=== PATIENT | male | born 1945 | race Caucasian/White ===

== ENCOUNTER → 2016-09-07 | Outpatient (CLI) | payer MEDICARE ==
[~2016-09-07] MED LIST: AFRIN) (GENASAL15 ML NOSE; AMOX TR-K CLV1 EAC4 PO; ASPIRIN325 MG PO; ATORVASTATIN CA80 MG PO; CALCIUM500 MG PO; CARVEDILOL3.125 MG PO; CLARITIN10 MG PO; COLACE100 MG PO; DELTASONE10 MG PO; DIFLUCAN100 MG FT; DILANTIN100 MG PO; DULCOLAX10 MG R; FEOSOL325 MG PO; FISH OIL1000 MG PO; FLOMAX0.4 MG PO; FLUOXETINE HCL20 MG PO; GLUCOPHAGE850 MG PO; GLUCOSAMINE-CH1 EA35 PO; GLUCOSAMINE-CH1 EAC2 PO; IPRAT-ALBUT 0.5-3 ML INH; ISOSOURCE 1.5250 ML PO; LEVEMIR100 UNIT/1 SUB-Q; LOTRIMIN AF24 GM TOP; LOTRIMIN30 GM TOP; MILK OF MA400 MG/5 M PO; MIRALAX17 GM PO; NOVOLOG100 UNIT/M SUB-Q; PHENYTOIN SODI100 MG PO; PRILOSEC OTC20 MG PO; PRILOSEC20 MG PO; PRINIVIL (ZESTRI5 MG PO; PRINIVIL OR ZES10 MG PO; PROTONIX40 MG PO; PROZAC40 MG PO; SEROQUEL25 MG PO; SEROQUEL50 MG PO; THERAGRAN-M1 TAB PO; TYLENOL325 MG FT; ULTRAM50 MG FT; ULTRAM50 MG PO; VITAMIN D-32000 UNI1 PO; VITAMIN E400 UNI2 PO; XANAX0.25 MG FT; ZEBETA5 MG PO; ZOFRAN8 MG PO; [UNRECOGNIZED DRUG - CODE] PO
== END | disposition disaster alternative care site (69) ==
LOC: GRAD 11:03
DX: T85.9XXA Unspecified complication of internal prosthetic device, implant and graft, initial encounter (principal); R13.10 Dysphagia, unspecified; R93.3 Abnormal findings on diagnostic imaging of other parts of digestive tract
CPT/HCPCS: G8996; G8997; G8998

== ENCOUNTER 2016-10-22 15:15 | Inpatient (IN) | payer MEDICARE ==
[~2016-10-22] VITALS: Ht 180.3 cm; Wt 71.2 kg
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
--- NOTE | ~2016-10-22 | DS ---
[facility]'S NAME: [facility] AGE: 71 Y [address] ROOM: [address] [address] LOCATION: [facility] [place] ADMIT DATE: 10/22/2016 Discharge Summary DISCHARGE DATE: 11/04/2016 FAMILY PHYSICIAN: Daren Gao MD ATTENDING PHYSICIAN: Hammad Nelson FINAL DIAGNOSES: 1. Cervical spondylolysis with subluxation. 2. Anterior cervical diskectomy with decompression of neural elements C4-C5, structural allograft, morselized allograft fusion C4-C5, [place] Elite plate placement C4-C5. 3. Postop swallowing difficulty requiring NG tube placement and feeding. 4. Eventual PEG tube placement for inability to swallow after multiple failed swallowing studies. 5. Diabetes mellitus type 2, treated with insulin. 6. Hyponatremia, resolved. 7. History of intracranial hemorrhage in 2007, after cerebral infarction. 8. Residual left hemiplegia from 2007. 9. PAD. 10. Hypertension, essential. 11. Mixed hyperlipidemia. 12. Ischemic heart disease with history of systolic dysfunction. Atrial fibrillation. 13. Cognitive impairment probably early dementia. HOSPITAL COURSE: The patient was admitted to the hospital per Dr. Montague and had neck surgery and then after surgery had trouble swallowing. ENT was consulted because of his swallowing difficulty, see Dr. Mccray's note. Cardiology was consulted, see Dr. Corrigan's note, and renal service per Dr. Mondragon was consulted because of the patient's hyponatremia. Eventually, the patient was seen also by Dr. Cote for consideration for rehab. Please see their dictation notes on the chart. Multiple lab and x-ray done. The patient reached maximal hospital benefit and was stable enough to be dismissed from hospital on date shown on the med list shown. He will follow up and see me in the office in one week and follow up with specialist as needed. Prognosis is guarded. DAREN GAO MD AIRPORT SECURITY SCREENER/modl PAT[facility]'S [facility]: [facility] AGE: 71 Y [address] ROOM: [address] [address] LOCATION: [facility] [place] ADMIT DATE: 10/22/2016 Discharge Summary DISCHARGE DATE: 11/04/2016 FAMILY PHYSICIAN: Daren Gao MD ATTENDING PHYSICIAN: Hammad Nelson /[id number] d: 11/20/16 2225 t: 11/25/16 0744, DISCHARGE SUMMARY
--- NOTE | ~2016-10-22 | PUL ---
PATIENT'S NAME: ADOLPH AGUILAR [facility] AGE: 71 Y [address] ROOM: [place] [address] [place] [facility] [place] DATE: 10/22/2016 Pulmonary DISCHARGE DATE: FAMILY PHYSICIAN: DAREN URIBE MD ATTENDING PHYSICIAN: Hammad Nelson NAME OF PROCEDURE: Overnight Trend Oximetry DATE OF PROCEDURE: October 27 to October 28, 2016 REASON FOR EXAM: Nocturnal hypoxemia RESULTS: The patient underwent overnight trend oximetry with saturations ranging from 75% to 91%. Saturations were below 88% for greater than 5 minutes. Heart rate ranged from 96 to 117 beats per minute. MD MYLES OLIVO/ /[id number] dtt: 11/16/16 0824 , Rishi Archer dtd: 10/28/16 0903
--- NOTE | ~2016-10-22 | CON ---
PATIENT'S NAME: ADOLPH AGUILAR [facility] AGE: 71 Y [address] ROOM: [place] [id number] LOCATION: [facility] [place] ADMIT DATE: 10/22/2016 Consultation DISCHARGE DATE: 11/04/2016 FAMILY PHYSICIAN: Johnathan Gao MD ATTENDING PHYSICIAN: Hammad Nelson HISTORY OF PRESENT ILLNESS: The patient is a 71-year-old gentleman with a past medical history of recently diagnosed stage III lung cancer, metastatic, currently undergoing chemotherapy. He was in Hematology/Oncology Clinic today, where he presented because he was feeling nausea and not feeling well and upset stomach. His also stated that he had been sleeping most of the days and had been drowsy and had been losing his balance after standing up. He had difficulty breathing while he laid down this morning as well. On my encounter, the patient is feeling weak. He denied any chest pain, any shortness of breath, any abdominal pain, did endorse having burning on urination. He denied having any fever or chills. No headache noted. PAST MEDICAL HISTORY: CVAs many years ago; diabetes mellitus type 2; hypertension; and atrial fibrillation, not on any long-term anticoagulation. SOCIAL HISTORY: Former smoker. No ongoing toxic habits. FAMILY HISTORY: brother testicular cancer. MEDICATIONS: Please see MAR. PHYSICAL EXAMINATION: VITAL SIGNS: The patient was having blood pressure of 100/70, 82, afebrile, 20. GENERAL: Mild acute distress due to weakness. Alert and oriented x3. HEENT: Head: Atraumatic and normocephalic. Eyes: Nonicteric. No pallor. Oropharynx: Moist mucous membranes. CARDIOVASCULAR: S1 and S2. No murmurs, gallops, or rubs. LUNGS: Clear to auscultation bilaterally. ABDOMEN: Soft, nontender, and nondistended. Bowel sounds present. EXTREMITIES: No clubbing, cyanosis, or edema. LABORATORY DATA: Lab work showed white count of 21, hemoglobin of 11, hematocrit of 32, and platelets of 226. PATIENT'S NAME: ADOLPH AGUILAR [facility] AGE: 71 Y [address] ROOM: [place] [id number] LOCATION: [facility] [place] ADMIT DATE: 10/22/2016 Consultation DISCHARGE DATE: 11/04/2016 FAMILY PHYSICIAN: Johnathan Gao MD ATTENDING PHYSICIAN: Hammad Nelson ASSESSMENT: 1. Acute cystitis. 2. Stage III lung cancer, adenocarcinoma. 3. Hypertension. 4. Coronary artery disease. 5. Peripheral vascular disease. 6. Depression. 7. Gastroesophageal reflux disease. 8. Iron deficiency anemia. 9. Atrial fibrillation, not on any anticoagulation. PLAN: We are going to admit this patient. We are going to start antibiotics and intravenous fluid resuscitation. We will obtain basic labs including a BMP. We will get a CAT scan of the chest without contrast given his short of breath and history of lung cancer. Could be pneumonitis secondary to the radiation treatment. I will start the patient on heparin 5000 units subcu q.8 hours. After Cr is stablized, we will change it to Lovenox. Thank you for this consult. MD ARABELLA ANGELES/herson /[id number] d: 11/08/162020 t: 11/14/16 1316, CONSULTATION REPORT
--- NOTE | ~2016-10-22 | DS ---
PATIENT'S NAME: ADOLPH AGUILAR [facility] AGE: 71 Y [address] ROOM: [place] [address] LOCATION: [facility] [place] ADMIT DATE: 10/22/2016 Discharge Summary DISCHARGE DATE: 11/04/2016 FAMILY PHYSICIAN: Johnathan Gao MD ATTENDING PHYSICIAN: Hammad Nelson /DISCHARGE SUMMARY DATE OF : 11/04/2016. PRIMARY DIAGNOSES: 1. Tox-dsbml-lvns lung carcinoma, stage IV. 2. Acute on chronic hypoxic respiratory failure. 3. Sepsis. 4. Urinary tract infection with Pseudomonas and Enterococcus faecalis. 5. Acute on chronic diastolic congestive heart failure. 6. Paroxysmal atrial fibrillation. 7. Diabetes mellitus type 2. 8. History of cerebrovascular accident. 9. Coronary artery disease. 10. Depression. 11. Iron deficiency anemia. OPERATIONS OR PROCEDURES: CT scan of the chest was performed on 10/22/2016 demonstrating large bilateral masslike pulmonary lesions. CT scan of the chest per PE protocol performed on 10/27/2016 was negative for PE, but significant for diffuse neoplastic disease including large areas of dense pulmonary parenchymal opacity. Small nodules in the left upper lung, right pleural effusion, and precarinal and subcarinal masses. CT scan of the abdomen and pelvis performed on 10/27/2016 demonstrated a 3.5 cm mass consistent with neoplastic disease at the left kidney, bilateral adrenal enlargement, and vascular calcifications. HISTORY OF PRESENTING ILLNESS/REASON FOR ADMISSION: Please refer to the H and P dictated on 10/22/2016. HOSPITAL COURSE: The patient was admitted to the hospital as noted above by the oncology service. The hospitalist service was requested to assist in medical management and ultimately to assume care. Please see the hospital chart for specific details. Briefly, the patient's clinical condition was poor. He had been undergoing chemotherapy at the direction of Hematology and Oncology. Upon admission, he was identified to have urinary tract infection and felt to be septic. He was treated with broad-spectrum antibiotic therapy. Unfortunately, his clinical PATIENT'S NAME: ADOLPH AGUILAR [facility] AGE: 71 Y [address] ROOM: [place] [address] LOCATION: [facility] [place] ADMIT DATE: 10/22/2016 Discharge Summary DISCHARGE DATE: 11/04/2016 FAMILY PHYSICIAN: Johnathan Gao MD ATTENDING PHYSICIAN: Hammad Nelson condition failed to improve significantly and persistent leukocytosis was noted. It was felt that the leukocytosis was not directly caused by cystitis, and eventually antibiotic therapy was discontinued. His clinical condition gradually deteriorated. Hematology and Oncology continued to provide clinical followup. Palliative Care was also consulted. Ultimately, it was recommended to pursue continued aggressive supportive care. The patient was full code up until 10/28/2016, and then after discussion with the family and Palliative Care, it was decided to make him DNR. At that point, primarily palliative based approach was taken, and best supportive care was recommended by Dr. Bowman. Clinical condition continued to deteriorate, and on 11/04/2016, the patient was found to be without pulse or respirations and pronounced . Family expressed no concerns or questions. MD KRISTIAN BAINS/herson /[id number] d: 12/02/162012 t: 12/06/16 0658, DISCHARGE SUMMARY
[~2016-10-22 15:15] MED LIST changes: -AMOX TR-K CLV1 EAC4 PO; -DELTASONE10 MG PO; -FEOSOL325 MG PO; -VITAMIN D-32000 UNI1 PO; -ZOFRAN8 MG PO
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
[2016-10-22] MEDS ORDERED: DELTASONE10 MG PO ×3 (16:58→17:00)
[2016-10-22] MEDS ORDERED: THERAGRAN-M1 TAB PO (17:01)
[2016-10-22] MEDS ORDERED: COLACE100 MG PO (17:01)
[2016-10-22] MEDS ORDERED: VITAMIN D-32000 UNI1 PO (17:01)
[2016-10-22] MEDS ORDERED: FEOSOL325 MG PO (17:02)
[2016-10-22] MEDS ORDERED: ZOFRAN8 MG PO (17:02)
[2016-10-22] MEDS ORDERED: AMOX TR-K CLV1 EAC4 PO (17:04)
[2016-10-22 18:00] LABS: ALK PHOS 142 IU/L (33-138); ALT 47 IU/L (12-78); ANION GAP 11.4 (10.0-19.0); AST 47 IU/L (10-40); BLOOD UREA NITROGEN 12 mg/dL (6-24); CALCIUM 8.9 mg/dL (8.5-10.5); CHLORIDE 96 mMol/L (96-110); CO2 27 mMol/L (22-32); CREATININE 0.4 mg/dL (0.6-1.3); ESTIMATED GFR (MDRD EQUATION) > 60; POTASSIUM 4.4 mMol/L (3.7-5.1); SODIUM 130 mMol/L (135-145); TOTAL PROTEIN 6.7 g/dL (6.0-8.4)
[2016-10-22 18:02] LABS: ALBUMIN 1.9 gm/dL (3.5-5.0); TOTAL BILIRUBIN 0.3 mg/dL (0.0-1.5)
--- NOTE | 2016-10-23 06:12 | NUR ---
Significant Event:pt alert and oriented x3. pleasant with staff and cares.up with 2 assist. contient of urine during night, uses urinal, chest port to right chest running nacl at 100ml/hr. lab also taken from port with no complications. left side paralysis. heels floated while in bed. takes pills whole in applesause with no complications noted. uses call light approp. will be here during day Follow up:
[2016-10-23 06:30] LABS: ALK PHOS 130 IU/L (33-138); ALT 40 IU/L (12-78); AST 46 IU/L (10-40); BASOPHIL % 0.1 %; BLOOD UREA NITROGEN 9 mg/dL (6-24); CALCIUM 8.8 mg/dL (8.5-10.5); CHLORIDE 98 mMol/L (96-110); CO2 26 mMol/L (22-32); CREATININE 0.4 mg/dL (0.6-1.3); EOSINOPHIL # 0.1 K/uL (0.0-0.5); EOSINOPHIL % 0.8 %; ESTIMATED GFR (MDRD EQUATION) > 60; HEMATOCRIT 27.6 % (37.0-53.0); HEMOGLOBIN 9.4 g/dL (11.0-16.0); IMMATURE GRANULOCYTE # 0.2 K/uL (0.0-0.3); IMMATURE GRANULOCYTE % 1.2 %; LYMPHOCYTE # 0.7 K/uL (0.8-4.0); LYMPHOCYTE % 4.4 %; MCH 34.1 pg (27.0-34.0); MCHC 34.1 gm/dL (32.0-36.5); MONOCYTE # 1.3 K/uL (0.0-1.0); MONOCYTE % 8.1 %; NEUTROPHIL # (ANC) 13.4 K/uL (1.4-9.0); NEUTROPHIL % 85.4 %; NRBC % 0 /100WBC (0-0.00); RBC 2.76 M/uL (3.50-5.50); RDW-CV 14.5 % (11.9-14.6); SODIUM 132 mMol/L (135-145); TOTAL PROTEIN 6.2 g/dL (6.0-8.4); WBC 15.7 K/uL (4.0-11.0)
[2016-10-23 06:31] LABS: PLATELET COUNT 204 K/uL (150-450)
[2016-10-23 06:32] LABS: ALBUMIN 1.6 gm/dL (3.5-5.0); TOTAL BILIRUBIN 0.2 mg/dL (0.0-1.5)
--- NOTE | 2016-10-23 18:17 | NUR ---
AAOx3. Cooperative with cares. Repo Q2hrs. Uses urinal urgently. On 2liters O2. C/O difficulty breathing, but was satting 94-95%. Likes HOB up, but buttom is slightly reddened and has had previous ulcer. Hemiparesis to Left side. Brace to LL when up. Port to Rchest w/NS @100ml/hr. Antibiotic being changed to Levaquin so tele ordered for Seroquel interaction of possible increased Prolonged QT syndrome. Sores to outer ankle bones, float feet.
--- NOTE | 2016-10-24 07:46 | NUR ---
Significant Event: Pt alert and oriented. Very uncomfortable at the beginning of shift. Multiple repositions. SOB at rest, Respirations 28 beginning of shift 02 at 2 liters. Throughout the evening pt's resp increased to 36-40, 02 requirements increased and MD notified. Total of 80mg of Lasix given, 25% Albumin, Le placed. Hycodan for cough. Total of 1750 UOP after lasix. Follow up: Keep maps > 60. Hold BP meds this morning of BP's still running low.
--- NOTE | 2016-10-24 19:37 | NUR ---
Significant Event: Patient alert and oriented. Up to the recliner with PT this morning and transferred back to bed after lunch with 2 assist. Patient denies discomfort. Respirations in the upper 20's to 30 with O2 sats at 90-92%. O2 at 3 l/nc. Patient has an occasional nonproductive cough. PEG tube to his abdomen intact with bolus tube feeding given, no residual noted. Le patent and drains yellow urine with 600 ml out for the shift. Accuchecks have been 140, 122 and 206 with 2 units of Novolog insulin given with dinner. Portacath to his R) upper chest flushes well with good blood return. Follow up: Reposition q 2hrs.
--- NOTE | 2016-10-25 04:35 | NUR ---
Significant Event: Patient alert and oriented X4. Up with 2 person assist. Has leg brace on couch. Reposition every 2 hours. Vitals stable and on room air. Telemetry on, no calls. Shortness of breath. Stated he was dried out from oxygen, so it is now humidified. L) side paralysis. Limb alert to L) arm. Tramadol given X1 around 1930 and morphine given X1 around 2330. Relief noted with morphine and has slept most of shift after that. Cooperative with cares. Le in place. 3 liters oxygen. Peg tube four times a day. Will give around 0500. IV levquin. Hard of hearing. Takes meds whole in apple sauce. Follow up: Monitor vitals/pain
[2016-10-25 11:18] LABS: ANION GAP 12.7 (10.0-19.0); BLOOD UREA NITROGEN 13 mg/dL (6-24); CALCIUM 8.7 mg/dL (8.5-10.5); CHLORIDE 96 mMol/L (96-110); CO2 28 mMol/L (22-32); CREATININE 0.5 mg/dL (0.6-1.3); ESTIMATED GFR (MDRD EQUATION) > 60; MAGNESIUM 1.9 mg/dL (1.8-2.6); POTASSIUM 3.7 mMol/L (3.7-5.1); SODIUM 133 mMol/L (135-145)
[2016-10-25 13:47] LABS: BASOPHIL % 0.2 %; EOSINOPHIL # 0.1 K/uL (0.0-0.5); EOSINOPHIL % 0.4 %; HEMOGLOBIN 9.8 g/dL (11.0-16.0); IMMATURE GRANULOCYTE # 0.2 K/uL (0.0-0.3); IMMATURE GRANULOCYTE % 0.9 %; LYMPHOCYTE # 0.9 K/uL (0.8-4.0); MCHC 33.8 gm/dL (32.0-36.5); MCV 100.7 fl (83.0-98.0); MONOCYTE # 1.6 K/uL (0.0-1.0); MONOCYTE % 7.2 %; NEUTROPHIL % 87.3 %; NRBC % 0 /100WBC (0-0.00); RBC 2.88 M/uL (3.50-5.50); RDW-CV 14.2 % (11.9-14.6)
[2016-10-25 13:54] LABS: PLATELET COUNT 261 K/uL (150-450); WBC 21.7 K/uL (4.0-11.0)
[2016-10-25 14:02] LABS: CPK 66 IU/L (35-332)
--- NOTE | 2016-10-25 15:30 | NUR ---
ATTEMPTED TO SPEAK WITH ADOLPH AND HIS FAMILY BUT THERE IS NOT ANY FAMILY AT THE BEDSIDE AND PATIENT IS SLEEPING. WILL TRY TO SEE PATIENT AT ANOTHER TIME.
--- NOTE | 2016-10-25 20:35 | NUR ---
AAOx3. Cooperative with cares. Up to chair today w/PT and ambulated in room. Gave Morphine 2mg and Ultram x1 w/noted relief of back pain. Repo Q2hr. PEG tube feedings QID. Tolerating small amounts of regular diet. well. BS AC/HS w/moderate SSI. Rchest port w/GBR, s/l'd. On 2 liters O2. Palliative Care consult today.
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
[2016-10-26 06:10] LABS: BASOPHIL % 0.2 %; EOSINOPHIL # 0.1 K/uL (0.0-0.5); EOSINOPHIL % 0.5 %; HEMATOCRIT 31.4 % (37.0-53.0); HEMOGLOBIN 10.5 g/dL (11.0-16.0); IMMATURE GRANULOCYTE # 0.3 K/uL (0.0-0.3); IMMATURE GRANULOCYTE % 1.2 %; LYMPHOCYTE # 1.3 K/uL (0.8-4.0); LYMPHOCYTE % 5.4 %; MCH 33.9 pg (27.0-34.0); MCHC 33.4 gm/dL (32.0-36.5); MCV 101.3 fl (83.0-98.0); MONOCYTE # 1.4 K/uL (0.0-1.0); MONOCYTE % 6.2 %; MPV 9.1 fl (9.4-12.4); NEUTROPHIL % 86.5 %; NRBC % 0 /100WBC (0-0.00); PLATELET COUNT 277 K/uL (150-450); RDW-CV 14.1 % (11.9-14.6)
[2016-10-26 06:11] LABS: WBC 23.1 K/uL (4.0-11.0)
[2016-10-26 06:26] LABS: ANION GAP 12.4 (10.0-19.0); BLOOD UREA NITROGEN 16 mg/dL (6-24); CALCIUM 9.1 mg/dL (8.5-10.5); CHLORIDE 96 mMol/L (96-110); CO2 29 mMol/L (22-32); CREATININE 0.5 mg/dL (0.6-1.3); ESTIMATED GFR (MDRD EQUATION) > 60; POTASSIUM 4.4 mMol/L (3.7-5.1); SODIUM 133 mMol/L (135-145)
--- NOTE | 2016-10-26 10:59 | NUR ---
A - NUTRITION F/U. GLU 207, BUN/[employer] 16/0.5, ALB 1.6. NO EDEMA. DIET: REGULAR W/ GLUCERNA BID. INTAKE 0-50%. OSMOLITE 1.5 375 ML QID VIA PEG. PT STATES APPETITE FAIR. TAKING GLUCERNA. C/O NOT BEING ABLE TO CHEW MEATS; PHONED MD AND OBTAINED ORDER FOR THE [facility] SOFT. D - AT RISK W/ INADEQUATE ORAL INTAKE R/T DECREASED APPETITE AEB INTAKE RECORD. I - GOAL: 50% INTAKE BY DISMISSAL. M/E - WILL MONITOR ORAL INTAKE AND ASSIST NEEDED. F/U IN 2-4 DAYS.
--- NOTE | 2016-10-26 11:00 | NUR ---
MEET WITH PATIENT HIS SPOUSE EVA AND SON ZAYNAB AT THE BEDSIDE. THEY HAVE DECIDED THAT THEY WOULD LIKE FOR ADOLPH TO CONT CHEMO IF DR. QUILES FEELS THAT IT IS APPROIATE. AND THEY WOULD LIKE FOR ADOLPH TO GO TO THE [facility] [place]. THEY HAVE BEEN TALKING TO SABINA AND THEY TELL ME THAT THERE IS A BED FOR ADOLPH AT THE [facility]. I NOTIFIED THE [facility] [phone] AND SPOKE TO TANYA SHE CONFIRMS THAT THEY HAVE A BED AND THAT THEY WILL ACCEPT PATIENT WHILE HE IS GETTING CHEMO AND CAN TRANSFERE HIM TO HIS TREATMENTS AT THE [facility] [address] [facility] [address] IN [place]. SHE TRANSFERED ME TO [facility] AND SHE REPORTS THAT THEY HAVE A BED FOR ADOLPH AND IF HE DECIDES TO TAKE CHEMO THEY WILL TAKE HIM. SHE WOULD LIKE FOR ME TO KEEP HER UPDATED ON THE PLAN HER CONTACT NUMBER IS ([phone]). WILL CONT TO FOLLOW NEEDED.
--- NOTE | 2016-10-26 17:38 | NUR ---
Significant Event: Patient is alert and oriented x3. Follows verbal cues but is hard of hearing. Patient was admitted with UTI, secondary Dx of lung cancer. Patient had fall on 10/20/16, reports he hit R) side of his head. Receives 375 mL of tube feedings QID. Indwelling catheter was discontinued at 1400. Pt takes meds whole in applesauce. Only ate a few bites all day, is mechanical soft diet. Strict I&O daily weights. 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 2PA with cane and brace. Therapy working with. Bharath BRANDT. Has R) chest port. Family at bedside. Plan is to [facility]. Follow Up: Reposition. Telemetry.
--- NOTE | 2016-10-26 18:43 | NUR ---
I HAVE REVIEWED AND AGREE WITH CHARTING COMPLETED BY [facility] STUDENT MONCHO THOMPSON FROM [id number] DANA WATSON
[2016-10-27 05:16] LABS: ANION GAP 11.4 (10.0-19.0); BLOOD UREA NITROGEN 20 mg/dL (6-24); CHLORIDE 96 mMol/L (96-110); CO2 32 mMol/L (22-32); CREATININE 0.5 mg/dL (0.6-1.3); ESTIMATED GFR (MDRD EQUATION) > 60; POTASSIUM 4.4 mMol/L (3.7-5.1); SODIUM 135 mMol/L (135-145)
[2016-10-27 05:59] LABS: BASOPHIL # 0.1 K/uL (0.0-0.2); BASOPHIL % 0.2 %; EOSINOPHIL # 0.2 K/uL (0.0-0.5); EOSINOPHIL % 0.7 %; HEMATOCRIT 30.5 % (37.0-53.0); IMMATURE GRANULOCYTE # 0.3 K/uL (0.0-0.3); IMMATURE GRANULOCYTE % 1.5 %; LYMPHOCYTE % 4.4 %; MCH 33.6 pg (27.0-34.0); MCHC 32.8 gm/dL (32.0-36.5); MCV 102.3 fl (83.0-98.0); MONOCYTE % 8.9 %; MPV 9.5 fl (9.4-12.4); NEUTROPHIL # (ANC) 19.1 K/uL (1.4-9.0); NEUTROPHIL % 84.3 %; NRBC % 0 /100WBC (0-0.00); PLATELET COUNT 275 K/uL (150-450); RBC 2.98 M/uL (3.50-5.50); RDW-CV 14.3 % (11.9-14.6)
[2016-10-27 06:04] LABS: WBC 22.7 K/uL (4.0-11.0)
--- NOTE | 2016-10-27 07:08 | NUR ---
Significant Event: Patient alert and oriented X4. tachypnic this shift. On 3 liters oxygen still. Morphine given X2. R) chest port saline locked. REposition often. Incont void X1. Bed alarm on. Tube feedings with meals four times daily. Palliative care on board. Follow up:
--- NOTE | 2016-10-27 09:00 | NUR ---
RECEIVED CALL FROM SABINA AT THE [facility] SHE WOULD LIKE INFO FAXED TO HER SHE WILL REVIEW THIS WITH THE PHYSICIAN WHO WILL BE FOLLOWING ADOLPH AT THE [facility].
--- NOTE | 2016-10-27 10:18 | NUR ---
[facility] AND UPDATED HER THAT I FAXED INFO TO HER SHE TELLS ME THAT THEY CAN ACCEPT PATIENT TOMORROW AND IF HE DOES NOT COME TOMORROW IT WILL HAVE TO BE TUE. WILL CONT TO FOLLOW NEEDED.
--- NOTE | 2016-10-27 12:30 | NUR ---
RECEIVED REFERRAL FROM BRUNA FAGAN THAT THEY WILL EVALUATE ADOLPH TOMORROW TO SEE IF THE IS READY FOR DISCHARGE. AND IF HE IS NOT READY FOR DISCHARGE TOMORROW THAT SHE IS OK WITH HIM GOING ON TUESDAY [facility] IF HE DOES NOT GO TOMORROW DUE TO THE HOLIDAY. AND THAT HE WILL NEED TO GO VIA AMBULANCE. I MEET WITH PATIENT'S SPOUSE EVA AND SON ZAYNAB AT THE BEDSIDE AND UPDATED THEM REGARDING THE DISCHARGE PLAN AND THEY ARE IN AGREEMENT TO THE PLAN. UPDATED THEM THAT Montrell FAGAN FEELS PATIENT WILL NOT BE ABLE TO TOLERATE RIDING IN CAR AND WILL NEED TO GO VIA AMBULANCE. UPDATED RAGHU AT THE [place] REGARDING THE DISCHARGE PLANS AND GOALS. SHE REPORTS THAT THERE WILL NEED TO BE A PHYSICIAN TO PHYSICIAN CONTACT TO DR. Dakota MORRISON AT [phone].
--- NOTE | 2016-10-27 19:19 | NUR ---
I HAVE REVIEWED AND AGREE WITH CHARTING COMPLETED BY [facility] STUDENT MONCHO THOMPSON FROM [phone] DANA WATSON
--- NOTE | 2016-10-27 19:20 | NUR ---
Significant Event: PT AO. VSS ON 3L O2, AFEBRILE. RR HAS BEEN TACHYPNIC THIS SHIFT. SCHEDULED RT TREATMENTS. 1X DOSE 40MG IV LASIX GAVE. PORT TO R CHEST, SALINE LOCKED. GOOD BLOOD RETURN. TELEMETRY ON WITH NO CALLS. PEG TUBE TO L ABD. NO RESIDUALS THIS SHIFT. STARTED ON PROBIOTIC GTTS TO PEG. PRN MORPHINE X1 PRN ULTRAM X1. ACHS ACCUCHECKS, WAS 235, 274, 396. MODERATE SLIDING SCALE. QID TUBE FEEDS, 375ML- FLUSHED WITH 100ML WATER. PT REF LUNCH, DID EAT SOME OF BREAKFAST. MECH SOFT DIET. SUPPOSITORY GAVE THIS AFTERNOON, ONLY SMALL RESULTS WITH DIGITAL EXTRACTION. TO HAVE TREND OX TONIGHT PER RT. CT CHEST PE PROTOCOL, CT ABD/PELVIS. HX CVA, L SIDE FLACCID. Q2HR REPOSITIONING. UP TO CHAIR THIS AM PER THERAPY. IS UP WITH 2PA, LEG BRACE, GAITBELT AND CANE. FAMILY AT BEDSIDE. PALLIATIVE CARE ON BOARD. PLAN IS TO [facility] TOMORROW BY AMBULANCE, NO OFFICIAL TIME OF YET. Follow up: REPOSITION, TUBE FEEDS, CT RESULTS, BOWEL MOVEMENT, PAIN CONTROL
--- NOTE | 2016-10-28 05:35 | NUR ---
Significant Event: Patient alert and oriented but confused statements at times. Large emesis during HS pill pass, MD notified and orders received to hold last tube feeding. MD discussed CT results with family. Continues to be incontient of urine. Family at bedside and assists with cares. Follow up: continue to monitor
--- NOTE | 2016-10-28 16:23 | NUR ---
Significant Event: Patient is very drowsy, but oriented when asking the patient the orientation questions. Blood pressure in the high 90's to low 100's. MD aware. Pulse 80- 100's. On 4 liters of O2. Harsh cough. Breathing treatments. IV lasix given x1. IV zofran given x2- patient very nauseated today. Relief noted. Has refused both feedings and all morning pills orally and via peg tube. Has not felt well. Did allow the cardiazem and potassium to be put in the PEG tube this aftenroon, but afterwards he stated he felt nauseated. Turning side to side every 2-3 hours. Le catheter placed for a residual of 604. Percocet given this morning, relief noted. PRN anxiety order received. Family aware. DNR order obtained and bracelet placed. Family continues to talk and discuss the options for bebeto. Started on IV zoysn, D/C po antibiotic. Pills in applesauce when able to take. Tele on, no calls. PEG tube in place. Port to the right chest- good blood return. Accuchecks AC/HS. Tube feedings are osmolite 375ml, QID. So far the patient has refused both feedings today. We will see what he feels like at 1700. Family at the bedside. They did complete and overnight trend ox last night and he does qualify. Cooperative with cares. Last turned at 1600.
--- NOTE | 2016-10-29 04:52 | NUR ---
Significant Event: PATIENT IS DROWSY BUT ORIENTED. PATIENT IS IN PROCESS OF BECOMING A PALLITIVE CARE PATIENT. DNR/DNI WAS WRITTEN FOR YESTERDAY. PALLITIVE CARE IS CONSULTED. PATIENT CONTINUES TO RECEIVE IV ABX. PATIENT DOES ANSWER QUESTIONS APPROPRIATELY BUT IS DROWSY. WAKES WITH VOICE. LABORED BREATHING. NON-PRODUCTIVE MOIST COUGH. 02 PER NC AT 4LPM. O2 SAT SITS AT LOW 90'S. PEG TUBE TO LEFT UPPER ABD. TUBE FEEDINGS QID. ACCUCHECKS ACHS. CARLOS TO DD. LEFT PARALYSIS R/T PREVIOUS CVA. PAC TO RIGHT CHEST. SL. BP TENDS TO RUN LOW. Follow up:
--- NOTE | 2016-10-29 17:20 | NUR ---
Significant Event: asleep most of shift does arouse at times, port needle and tubing changed this pm, MEWS of 5, accuchecks, 124, 376-12 units, 134, patel draining yellow urine, turning every 2 hours, pallative care established and discussing comfort cares-do not feel like family has full understanding of what comfort cares mean, help all BP & heart meds today as was hypotensive, O2 at 4L, Follow up:
--- NOTE | 2016-10-30 07:40 | NUR ---
Significant Event:pt has been officially made comfort cares. pt had increased o2 needs and pt currently on 7 l per simple mask. pt has patel draining dark yellow urine with sediment. pt also has peg tube to l upper abd. port to r chest is sl. pt was oriented to place but not time at start of shift. pt less resposive at second assesment. pt recieved morphine and ativan after comfort measures initiated due to c/o chest pain. pt has rapid shallow respirations. pt has pacer/ defibulator. pacer is still active but defib has been deactivated. Follow up:
--- NOTE | 2016-10-30 08:55 | NUR ---
PT MOVED TO NO RISK D/T COMFORT CARES.
--- NOTE | 2016-10-30 16:13 | NUR ---
Significant event: Patient is alert to self. Is comfort cares. Q 2hr mason, has not taken but only sips in. Has Port to right chest. Morphine is scheduled to be offered for q 4 hours. Oxygen needs to be per NC and can be from 2-4liters, per palliative. Le is in place and patent. Did have morphine x3 this morning, early afternoon. Does have peg tube in place. Does get restless and likes to grab/pull things. Likes to hang onto something when sleeping. Encouraged family to sit next to bed, so that he can touch and see them. Does have pacer/defib, defib has been deactivated. Family at bedside throughout day.
--- NOTE | 2016-10-31 04:46 | NUR ---
Significant Event:pt is alert to self and knows clif but not month. pt on 4 l per nc, tacnypnic, pt scheduled morphine q 4hrs. pt rested comfortably throughput shift. morphine given x1 for restlessness. patel had 650 uop. peg tube to l side. pt to take oral as desired, no meds or tube feeding now keesha he is comfort cares. family in room. Follow up:continue to monitor turn q 2 hrs.
--- NOTE | 2016-10-31 17:47 | NUR ---
Significant event: Patient is alert to self. VSS. on 4 liters per NC. On comfort cares. Respirations have been better today, running about 30/min. Port to right chest saline locked, good blood return. Morphine given x4 today. Reposition q 2hours. Le in place and is patent. Did take in 240ml of orange juice. Family at bedside.
--- NOTE | 2016-11-01 04:48 | NUR ---
Significant Event:PT IS COMFORT CARES. PT HAS CARLOS W/ 600MLS UOP, LIGHT MANNIE. PEG TUB CLAMPED AT THIS TIME. PORT TO R CHEST IS SL. PT HAS SCHEDULED MORPHINE Q 4HRS. PT RESTING QUIETLY MOST OF SHIFT BUT DOES BECOME RESTLESS AT TIMES. VITAL Q SHIFT AND PER FAMILY REQUEST. PT ON 4 L PER NC. REPO 2Q2 HRS BUT PT DOES MOVE IN BED. LEFT SIDE FLACID FROM PREVIOUS STROKE. HR HAS BEEN IN THE HIGH 120'S TO LOW 130'S AT TIMES. Follow up:CONTINUE TO MONITOR, OFFER MORPHINE Q 4 HRS, MORE NEEDED OF PT IS RESTLESS.
--- NOTE | 2016-11-01 19:34 | NUR ---
Significant Event:patient remains on comfort cares repositioning every 2 hours, took sips of OJ this am but then coughed after, patel draining yellow urine, rales noted bilat lower lobes, morphine 2 mg given x3 last at 1700, dressing to PEG changed Follow up:
--- NOTE | 2016-11-02 02:50 | NUR ---
SIGNIFICANT EVENT: Patient responds to voice and yes/no questions. Son at bedside most of shift, came back at approx 0000. Tachycardia, and tachypnea, no fever and BP is 99/56 to 102/64. On 4L O2. DNR as of 10/28/16 - comfort cares. Le in place, draining dark yellow urine. No intake this shift. Cooperative with cares.
--- NOTE | 2016-11-02 10:00 | NUR ---
SPOKE TO PATIENT'S SPOUSE AND SON ZAYNAB AT THE BEDSIDE UPDATED THEM THAT THERE IS A MALE BED AT [facility] AND [facility]. THEY WOULD LIKE FOR ME TO MAKE REFERRAL TO [facility]. SPOKE TO LAY AT [facility] SHE WOULD LIKE FOR ME TO FAX INFO TO HER SHE WILL REVIEW IT AND GET BACK TO ME. INFO FAXED TO LAY
--- NOTE | 2016-11-02 17:11 | NUR ---
Significant event: Patient is comfort cares. VSS, no temp. Morphine, given x2. O2 turned down to 2. Lung sounds are becoming more decreased. Breathing is more shallow. Slight purplish color to left foot. Does continue to open eyes occasionally to sound and touch, but does not answer questions for verbally respond. Reaches for things when becomes uncomfortable. Face is more pale to color. Family at bedside.
--- NOTE | 2016-11-03 06:48 | NUR ---
Significant Event: Patient is alert at times. On comfort cares. On 4L of O2. Reposition q2 hours. Le intact. 200 mls out this shift. PEG tube to abdomen intact. Morphine given last at 0530. Right chest port IV, good blood return. and son at the bedside. Follow up: Continue to keep patient comfortable.
--- NOTE | 2016-11-03 09:30 | NUR ---
SPOKE TO LAY AT [facility] SHE INFORMS ME THAT THEY WILL NOT BE ABLE TO ACCEPT PATIENT THEY DO NOT HAVE AN APPROIATE BED FOR HOME. UPDATED BRUNA FAGAN AND SHE FEEL THAT PATIENT HAS DECLINED ANT THAT IT MAY NOT BE APPROIATE TO MOVE HIM AT THIS TIME DUE TO THE DELINE HE HAS DONE.
--- NOTE | 2016-11-03 13:30 | NUR ---
ATTEMPETD TO UPDATE ADOLPH'S SPOUSE AND SON THAT [facility] DOES NOT HAVE A BED BUT THEY ARE NOT AT THE BEDSIDE AT THIS ITSC.
--- NOTE | 2016-11-03 14:30 | NUR ---
SPOKE TO ADOLPH'S SPOSUE AT THE BEDSIDE UPDATED HER THAT [facility] WILL NOT BE ABLE TO ACCEPT ADOLPH. SHE IS OK WITH THIS. WILL CONT TO FOLLOW NEEDED
--- NOTE | 2016-11-03 15:44 | NUR ---
Significant Event: Patient is on comfort cares. No vocal response. Not following commands. Eyes will open when you do oral cares. Turning side to side every 2 hours. Mottling present in the biltaeral lower extremities and to the coccyx. Oral cares done every [address] Right chest port- SL. PEG tube in place, but not using at this time. Morphine given x4 for air hunger and discomfort, last at 1347. Ativan given x1 at 1149. Blood pressure running in the low 80's, pulse in the 130-140's, respirations in the 30's and O2 in the high 70's. Family present at the bedside. Cooperative with all cares.
--- NOTE | 2016-11-04 05:17 | NUR ---
Pt. does not respond to voice. Comfort cares. Will respond when swabbing mouth. Turning every [address] with 50ml out. Oral cares every 2 hours. PEG tube in place but not using at this time. 2mg morphine given every 1-2 hours. BP in low 80's. Mottling present. Tachy. Resp. in high 30's. 2L of O2 per family request. Family at bedside. Cooperative with cares. R) chest port with GBR.
--- NOTE | 2016-11-04 17:37 | NUR ---
Significant Event: PT AT 1027 WITH SCOUT CRAIG APRN PRESENT TO ANNOUNCE TIME OF . RYLAN HEATH NOTIFIED FOR HOSPITALIST. FAMILY PRESENT AT BEDSIDE. [employer] DEVELOPER, PASTORAL CARE, AND NORS CALLED. NORS OK'D RELEASE OF BODY. HOME NOTIFIED AT 1234. CARLOS REMOVED AND PORT DEACCESSED. TRANSPORTED TO [facility]. BELONGINGS WITH FAMILY. NO AUTOPSY TO BE DONE.
== END 2016-11-04 13:35 | disposition expired | DRG 871 ==
LOC: GMSU 15:15
PROVIDERS: Family Medicine; Nurse Practitioner Family; Physician Assistant; ADMIT Internal Medicine Hematology & Oncology
PROC: 3E0F7GC Introduction of Other Therapeutic Substance into Respiratory Tract, Via Natural or Artificial Opening (ICD-10-PCS; principal; 2016-10-27)
DX: A41.89 Other specified sepsis (principal); J96.01 Acute respiratory failure with hypoxia; I50.23 Acute on chronic systolic (congestive) heart failure; J18.9 Pneumonia, unspecified organism; C79.9 Secondary malignant neoplasm of unspecified site; C34.90 Malignant neoplasm of unspecified part of unspecified bronchus or lung; I11.0 Hypertensive heart disease with heart failure; E11.65 Type 2 diabetes mellitus with hyperglycemia; G81.90 Hemiplegia, unspecified affecting unspecified side; N30.00 Acute cystitis without hematuria; R53.1 Weakness; B96.5 Pseudomonas (aeruginosa) (mallei) (pseudomallei) as the cause of diseases classified elsewhere; Z91.81 History of falling; Z51.5 Encounter for palliative care; Z66 Do not resuscitate; Z86.73 Personal history of transient ischemic attack (TIA), and cerebral infarction without residual deficits; I25.10 Atherosclerotic heart disease of native coronary artery without angina pectoris; D50.9 Iron deficiency anemia, unspecified
CPT/HCPCS: J0834; J1335; J1644; J1650; J1940; J1956; J2060; J2270; J2405; J2543; J7030; J7050; P9047; Q0162; Q9967